=== PATIENT | female | born 1990 | race Two or more races ===

== ENCOUNTER 2016-09-02 13:16 | Day surgery (SDC) | payer BC ==
[~2016-09-02 13:16] MED LIST: BUPIVACAINE/EPI 0.5% 30 ML SDV ONE; ONDANSETRON 4 MG/2 ML VIAL IVP PRN; ONDANSETRON DISINTEGRATING 4 MG TAB PO PRN; OXYCODONE/APAP 5/325 TAB PO PRN; SKIN ADHESIVE (DERMABOND) 1 EACH TP ONE
[2016-09-02] MEDS ORDERED: ceFAZolin 2 GM/DEXTROSE 100 ML IV ONE (14:00)
[2016-09-02] MEDS ORDERED: LIDOCAINE 1% 5 ML SDV ID PRN (14:12)
[2016-09-02] MEDS ORDERED: LR 1,000 ML IV ONE (14:12)
[2016-09-02] MEDS ORDERED: ONDANSETRON 4 MG/2 ML VIAL ONE ×2 (15:06→20:13)
[2016-09-02] MEDS ORDERED: DEXAMETHASONE 4 MG/ML VIAL ONE (15:06)
[2016-09-02] MEDS ORDERED: LIDOCAINE 2% 5 ML SDV ONE ×2 (15:07→15:12)
[2016-09-02] MEDS ORDERED: KETOROLAC 30 MG/1 ML SDV ONE (15:07)
[2016-09-02] MEDS ORDERED: fentaNYL 100 MCG/2 ML INJ ONE ×2 (15:07→16:41)
[2016-09-02] MEDS ORDERED: PROPOFOL 200 MG/20 ML VIAL ONE (15:07)
[2016-09-02] MEDS ORDERED: ROPIVACAINE HCL 150 MG/30 ML INJ ONE (15:11)
[2016-09-02] MEDS ORDERED: MIDAZOLAM 2 MG/2 ML VIAL ONE ×3 (15:19→16:25)
[2016-09-02] MEDS ORDERED: HYDROmorphONE/DILAUDID 2 MG/ML INJ ONE ×2 (16:14→16:51)
--- NOTE | 2016-09-02 17:51 | GOP ---
[f rep st] OPERATIVE REPORT DATE OF OPERATION: 09/02/2016 SURGEON: Delvin Landa MD COMMERCIAL RELIEF DRIVER: None. ANESTHESIA: General with a femoral block. 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 POSTOPERATIVE DIAGNOSIS: Left knee arthrofibrosis and small partial medial meniscus tear. PROCEDURE PERFORMED: 1. Left knee arthroscopy with extensive debridement and partial medial meniscectomy. 2. Left knee manipulation under anesthesia. FINDINGS: SPECIMENS: None. ESTIMATED BLOOD LOSS: 5 mL. INDICATIONS: This is a 25-year-old female who had a previously reconstructed ACL performed for meni scus repair. She had difficulty progressing with physical therapy and had significant problems gett ing back both her flexion and extension. Visiting her at 3 months she was lacking still about 20 de grees of extension and was only getting to about 80 to 90 degrees of flexion. She was counseled on risks and benefits of surgery. I also counseled her on the possibly of ACL revision if there was so me problem with the graft. She elected to proceed. We discussed risks of continued stiffness, inab ility to regain all her motion, instability, need for revision ACL, arthritis in the future, need to take out more meniscus from the repair, failed repair, nerve injury, wound complications. She elec renetta to proceed. Informed consent obtained. All questions answered. Marked preoperatively. DESCRIPTION OF PROCEDURE: She was taken to the operative suite. She had a femoral nerve block whic h was done. She was sterilely prepped and draped in normal fashion. Time-out was performed verifyi ng site, side, location, with agreement of the team. I manipulated her flexion and was able to get excellent flexion of 140 degrees before I even started the case. There was significant breaking up of the scar as I did this, but this did go relatively easy. Extension felt much tighter. I started the arthroscopy, establishing a lateral portal and a medial portal. She had significant scarring in front of her ACL and on both sides of the joint. There was a small anterior horn medial meniscus tear, which I debrided. The rest of the meniscus looked good and was intact and the repair seems solid, was intact. It probed stable, as did the lateral. She had minor grade 1 changes medially, good cartilage laterally. I debrided the significant scar in th e front of her knee, as well as in her pouch. I probed her ACL and this was stable, and this was st able under arthroscopic Angelia as well. I then was able to get her into extension by manipulating and breaking up additional scar tissue, I think in the back of her knee. Final range of motion was 0-140 degrees. I took pictures of this. I then closed the wounds after i rrigating these with 3-0 Monocryl and Dermabond. She was taken to PACU in stable condition. IMPLANTS: None. COMPLICATIONS: None. DRAINS: None. CONDITION: Stable. /[id number]/MODL
== END 2016-09-02 20:30 | disposition home or self-care (01) ==
LOC: FSGY 13:16
PROVIDERS: ATTEND Orthopaedic Surgery
PROC: 0SBD4ZZ Excision of Left Knee Joint, Percutaneous Endoscopic Approach (ICD-10-PCS; principal; 2016-09-02 15:00)
PROC: 0MNP4ZZ Release Left Knee Bursa and Ligament, Percutaneous Endoscopic Approach (ICD-10-PCS; principal; 2016-09-02 15:00)
DX: M24.662 Ankylosis, left knee (principal); M23.212 Derangement of anterior horn of medial meniscus due to old tear or injury, left knee; S83.32XD Tear of articular cartilage of left knee, current, subsequent encounter
CPT/HCPCS: J0690; J1100; J1170; J1885; J2250; J2405; J2704; J2795; J3010